=== PATIENT | female | born 1950 | race Caucasian/White ===

== ENCOUNTER 2019-01-13 05:53 | Observation (INO) | payer OTHER ==
[~2019-01-13] VITALS: Ht 165.1 cm; Wt 74.8 kg
[2019-01-13] VITALS (8 sets, daily range): BP systolic 77–120; BP diastolic 45–78
[~2019-01-13 05:53] MED LIST: BIOT1CAP3 PO; CHOL10003 PO; COFF400C PO; CYAN250012 PO; FLUT9.9S NS; L.AC1CAP6 PO; METO25TA2 PO; MONT10TA9 PO; NAPR220T70 PO; SENN1TAB70 PO; SIMV40TA3 PO; TURM538C PO
[2019-01-13] MEDS ORDERED: LIDOCAINE 1%/EPI 1:100,000 20 ML VIAL. ONE ×2 (06:40)
[2019-01-13] MEDS ORDERED: ESTROGENS, CONJ VAGINAL CREAM 30GM TUBE. ONE (06:40)
[2019-01-13] MEDS ORDERED: PROCHLORPERAZINE 10 MG/2 ML VIAL. IV PRN ×2 (07:00→10:15)
[2019-01-13] MEDS ORDERED: LIDOCAINE 1% PF 2 ML VIAL. ID PRN (07:00)
[2019-01-13] MEDS ORDERED: HYDROmorphone 2 MG/ML VIAL IV PRN (07:00)
[2019-01-13] MEDS ORDERED: IV RINGERS,LACTATED 1000ML 1,000 ML IV SCH (07:00)
[2019-01-13] MEDS ORDERED: MORPHINE SULFATE 2 MG/ML VIAL. IV PRN (07:00)
[2019-01-13] MEDS ORDERED: ONDANSETRON PF 4 MG/2 ML VIAL. IV PRN ×2 (07:00→10:15)
[2019-01-13] MEDS ORDERED: fentaNYL PF VIAL 100 MCG/2 ML VIAL IV PRN ×2 (07:00)
[2019-01-13] MEDS ORDERED: INDIGOTINDISULFONATE SODIUM 40 MG/5 ML AMPUL. IV ONE (07:45)
[2019-01-13] MEDS ORDERED: fentaNYL PF VIAL 250 MCG/5 ML VIAL ONE (07:52)
[2019-01-13] MEDS ORDERED: MIDAZOLAM HCL/PF 2 MG/2 ML VIAL. ONE (07:52)
--- NOTE | 2019-01-13 07:59 | NUR ---
at bedside and aware of rash lateral aspect of bilateral breast areas. no orders given by . Dr. Schultz states it is ok for pt to have surgery.
[2019-01-13] MEDS ORDERED: DEXAMETHASONE SOD PHOS 4 MG/ML VIAL ONE (08:50)
[2019-01-13] MEDS ORDERED: LIDOCAINE 2% PF 5 ML VIAL. ONE (08:50)
[2019-01-13] MEDS ORDERED: ONDANSETRON PF 4 MG/2 ML VIAL. ONE (08:50)
[2019-01-13] MEDS ORDERED: PROPOFOL 20 ML IV ONE (08:50)
[2019-01-13 08:51] LABS: BASO % 1 % (0-3); EOS # 0.2 x10^3/uL (0.0-0.7); EOS % 3 % (0-3); HEMATOCRIT 44.5 % (36.0-47.0); HEMOGLOBIN 14.5 g/dL (12.0-15.5); LYMPH # 1.7 x10^3/uL (1.0-4.8); LYMPH % 32 % (24-48); MEAN CORPUSCULAR HEMOGLOBIN 29 pg (25-35); MEAN CORPUSCULAR HGB CONC 33 g/dL (31-37); MEAN CORPUSCULAR VOLUME 88 fL (79-100); MONO # 0.6 x10^3/uL (0.0-1.1); MONO % 11 % (0-9); NEUT # 2.7 x10^3uL (1.8-7.7); NEUT % 53 % (31-73); PLATELET COUNT 197 x10^3/uL (140-400); RED BLOOD COUNT 5.07 x10^6/uL (3.50-5.40); RED CELL DISTRIBUTION WIDTH 13.6 % (11.5-14.5); WHITE BLOOD COUNT 5.1 x10^3/uL (4.0-11.0)
[2019-01-13] MEDS ORDERED: SEVOFLURANE > 120 MINUTES. IH ONE (09:40)
--- NOTE | 2019-01-13 10:01 | PDOC ---
BRIEF OPERATIVE NOTE Date: January 13, 2019 Pre-Op Diagnosis 1. Incomplete Uterovaginal Prolapse 2. UMER Post-Op Diagnosis Same Procedure Performed 1. TVH & BSO 2. SSF 3. Bladder Sling 4. Anterior Colporrhaphy Surgeon Dr. Schultz Anesthesia Type: General Blood Loss 50 ml Specimens Obtained uterus, cervix, dk. fallopian tubes and ovaries Findings incomplete uterovaginal prolapse and UMER Complications none Operative Note see dictation SHIRLEY SCHULTZ Jr, MD January 13, 2019 10:01
[2019-01-13] MEDS ORDERED: 0.9 % SODIUM CHLORIDE 10 ML DISP.SYRIN. IV PRN (10:15)
[2019-01-13] MEDS ORDERED: diphenhydrAMINE HCL 25 MG CAPSULE PO PRN (10:15)
[2019-01-13] MEDS ORDERED: ZOLPIDEM 5 MG TABLET. PO PRN (10:15)
[2019-01-13] MEDS ORDERED: DEXTROSE 50% 25 GM / 50ML DISP.SYRIN. IV PRN (10:15)
[2019-01-13] MEDS ORDERED: diphenhydrAMINE 50 MG/ML VIAL IV PRN (10:15)
[2019-01-13] MEDS ORDERED: SIMETHICONE 80 MG TAB.CHEW PO PRN (10:15)
[2019-01-13] MEDS ORDERED: OPIUM/BELLADONNA 30/16.2MG SUPP.RECT. PR PRN (10:15)
[2019-01-13] MEDS ORDERED: CALCIUM CARBONATE 500 MG TAB.CHEW PO PRN (10:15)
[2019-01-13] MEDS ORDERED: KETOROLAC 30 MG/ML VIAL. IV PRN (10:15)
[2019-01-13] MEDS ORDERED: fentaNYL PF VIAL 100 MCG/2 ML VIAL ONE (10:23)
--- NOTE | 2019-01-13 11:03 | OP ---
DATE OF SURGERY: PREOPERATIVE DIAGNOSES: 1. Incomplete uterovaginal prolapse. 2. Stress urinary incontinence. POSTOPERATIVE DIAGNOSES: 1. Incomplete uterovaginal prolapse. 2. Stress urinary incontinence. PROCEDURE: 1. TVH-BSO. 2. Sacrospinous ligament fixation. 3. Bladder sling. 4. Anterior colporrhaphy. SURGEON: Shirley Carter MD ANESTHESIA: GETA. ESTIMATED BLOOD LOSS: 50 mL. COMPLICATIONS: None. FINDINGS: Incomplete uterovaginal prolapse, stress urinary incontinence. SUMMARY: This is a 68-year-old who was diagnosed with incomplete uterovaginal prolapse and stress urinary incontinence in clinic. She was counseled on risks, benefits and expectations of TVH-BSO, sacrospinous ligament fixation, anterior and posterior repair and bladder sling placement. The patient voiced clear understanding and desired to proceed. DESCRIPTION OF PROCEDURE: The patient was taken to surgery suite and placed in dorsal lithotomy position. She was prepped with Betadine solution for vaginal prep and draped in sterile fashion. After adequate anesthesia, weighted speculum and curved [place] placed vaginally. Dmitriy clamp was placed on the cervix. The cervix was then injected with 1% Xylocaine with epinephrine in a circumferential manner. Bovie cautery was utilized to circumscribe the cervix. The vaginal mucosa was dissected away from the lower uterine segment using a moist Ray-Lizzy. The parametrial tissue was clamped bilaterally with curved Tato clamps, cut and suture ligated with 2-0 Vicryl suture. The posterior cul-de-sac was entered with sharp dissection with curved Coreas scissors. The long weighted speculum was placed. Uterosacral ligaments and cardinal ligaments were clamped bilaterally, cut, and suture ligated. Additional pedicle was taken just adjacent to the uterus, which was clamped with curved Tato clamps, cut, and suture ligated. The uterus was then retroverted. The round ligament and uteroovarian pedicles were clamped bilaterally with curved Tato clamps, cut and suture ligated and a small area peritoneum was adjacent to the uterus was clamped, cut, and tied with free tie. The uterus was then removed. The right infundibulopelvic ligament was isolated, clamped with curved Tato clamp, cut, tied with a suture tie and the entire right fallopian tube and ovary were then removed. Same process took place with the left adnexa. At this time, we transitioned to the vaginal colpopexy, in which the Capio device was utilized to place a suture through the medial aspect of the right sacrospinous ligament and tied to the anterior and posterior vaginal cuff. Two sutures were performed in this manner in which the vaginal cuff was tied loosely. The remainder of the vaginal cuff was reapproximated using 2-0 Vicryl suture in a eoyjht-yz-pggoz manner. Allis clamp was placed 1 cm below the urethral orifice. A second Allis clamp was placed 3 cm below the first Allis clamp and the anterior vaginal wall mucosa. 1% Xylocaine with epinephrine was injected between the 2 Allis clamps as well as in the periurethral space. It was also injected in the insertion points of the groin, which is at the level of the clitoris and where the abductus longus attached to the pubic rami bilaterally. An incision was made for the entry points as well for the trocar. The scalpel was utilized to make a vertical incision between the 2 Allis clamps. The vaginal mucosa was dissected away from the pubovesical fascia using sharp dissection with Metzenbaum scissors, also creating space in the periurethral space all the way to the obturator foramen bilaterally. Blunt dissection was also performed all the way to the obturator foramen bilaterally. The left trocar was then placed and guided with my index finger out through the periurethral space. Same process was placed through the right trocar. Cystoscopy was then performed in which the bladder was intact with no evidence of injury. The ureterovesical junctions were functioning normally bilaterally. The cystoscope was then removed. The bladder sling was adjusted with a size 7 Hegar dilator to a loose fit underneath the urethra. The exposed mesh at the groin region was excised and the skin was reapproximated using Dermabond. We then proceeded with the anterior colporrhaphy in which the pubovesical fascia was reapproximated using 2-0 Vicryl suture in an interrupted fashion. The excess anterior vaginal mucosa was excised using Metzenbaum scissors. The remaining anterior vaginal wall mucosa was reapproximated using 2-0 Vicryl suture in a akldnx-aj-nqehd manner. At this time, there was no need for the posterior colporrhaphy. A Premarin soaked vaginal packing was placed. Reinoso catheter was placed, which elicited clear yellow urine. The patient tolerated the procedure well and was taken to recovery room in stable condition. Sponge and needle count correct x 3. SHIRLEY CARTER MD DR: ROMÁN/carmel JOB#: [id number] / [id number]
[2019-01-13] MEDS: oxyCODONE/APAP 5/325 1 TAB TABLET PO PRN ×2 (13:58→18:35)
[2019-01-13] MEDS: GABAPENTIN 300 MG CAPSULE. PO SCH (14:00)
[2019-01-14] VITALS: BP 110/58
[2019-01-14 05:30] VITALS: BP 108/60
[2019-01-14] MEDS: oxyCODONE/APAP 5/325 1 TAB TABLET PO PRN ×2 (05:40→12:23)
[2019-01-14 05:49] LABS: RED BLOOD COUNT 3.47 x10^6/uL (3.50-5.40); WHITE BLOOD COUNT 9.2 x10^3/uL (4.0-11.0)
[2019-01-14 05:50] LABS: BASO % 0 % (0-3); EOS % 1 % (0-3); HEMATOCRIT 30.9 % (36.0-47.0); HEMOGLOBIN 10.2 g/dL (12.0-15.5); LYMPH # 1.3 x10^3/uL (1.0-4.8); LYMPH % 14 % (24-48); MEAN CORPUSCULAR HEMOGLOBIN 30 pg (25-35); MEAN CORPUSCULAR HGB CONC 33 g/dL (31-37); MEAN CORPUSCULAR VOLUME 89 fL (79-100); MONO # 0.9 x10^3/uL (0.0-1.1); MONO % 10 % (0-9); NEUT # 6.9 x10^3uL (1.8-7.7); NEUT % 75 % (31-73); PLATELET COUNT 169 x10^3/uL (140-400); RED CELL DISTRIBUTION WIDTH 13.6 % (11.5-14.5)
[2019-01-14] MEDS: GABAPENTIN 300 MG CAPSULE. PO SCH (08:36)
[2019-01-14] MEDS ORDERED: DICLOFENAC SODIUM 1% TOPICAL GEL 100GM TUBE. TP SCH (09:00)
--- NOTE | 2019-01-14 12:22 | PDOC ---
SURGICAL PROGRESS NOTE Subjective Pt. feeling well. Pain controlled. Pt. tolerated regular diet and ambulating in room. Vital Signs Vital Signs Date Time Temp Pulse Resp B/P (MAP) Pulse Ox O2 Delivery O2 Flow Rate FiO2 01/14/19 05:40 18 Room Air 97.0 01/14/19 05:30 98.0 67 108/60 (76) 99 98.0 I&O Intake and Output 01/14/19 07:00 Intake Total 2810 ml Output Total 1925 ml Balance 885 ml Intake Oral 1160 ml IV Total 1650 ml Output Urine Total 1875 ml Estimated Blood Loss 50 ml PATIENT HAS A ROBLES: Yes General: Alert, Oriented X3, Cooperative HEENT: Atraumatic Lungs: Clear to auscultation Heart: Regular rate Abdomen: Normal bowel sounds, Soft, No tenderness Psych/Mental Status: Mental status NL Labs Laboratory Tests Test 01/13/19 06:09 01/14/19 05:30 White Blood Count 5.1 x10^3/uL (4.0-11.0) 9.2 x10^3/uL (4.0-11.0) Red Blood Count 5.07 x10^6/uL (3.50-5.40) 3.47 x10^6/uL (3.50-5.40) Hemoglobin 14.5 g/dL (12.0-15.5) 10.2 g/dL (12.0-15.5) Hematocrit 44.5 % (36.0-47.0) 30.9 % (36.0-47.0) Mean Corpuscular Volume 88 fL (79-100) 89 fL (79-100) Mean Corpuscular Hemoglobin 29 pg (25-35) 30 pg (25-35) Mean Corpuscular Hemoglobin Concent 33 g/dL (31-37) 33 g/dL (31-37) Red Cell Distribution Width 13.6 % (11.5-14.5) 13.6 % (11.5-14.5) Platelet Count 197 x10^3/uL (140-400) 169 x10^3/uL (140-400) Neutrophils (%) (Auto) 53 % (31-73) 75 % (31-73) Lymphocytes (%) (Auto) 32 % (24-48) 14 % (24-48) Monocytes (%) (Auto) 11 % (0-9) 10 % (0-9) Eosinophils (%) (Auto) 3 % (0-3) 1 % (0-3) Basophils (%) (Auto) 1 % (0-3) 0 % (0-3) Neutrophils # (Auto) 2.7 x10^3uL (1.8-7.7) 6.9 x10^3uL (1.8-7.7) Lymphocytes # (Auto) 1.7 x10^3/uL (1.0-4.8) 1.3 x10^3/uL (1.0-4.8) Monocytes # (Auto) 0.6 x10^3/uL (0.0-1.1) 0.9 x10^3/uL (0.0-1.1) Eosinophils # (Auto) 0.2 x10^3/uL (0.0-0.7) 0.0 x10^3/uL (0.0-0.7) Basophils # (Auto) 0.0 x10^3/uL (0.0-0.2) 0.0 x10^3/uL (0.0-0.2) Laboratory Tests Test 01/14/19 05:30 White Blood Count 9.2 x10^3/uL (4.0-11.0) Red Blood Count 3.47 x10^6/uL (3.50-5.40) Hemoglobin 10.2 g/dL (12.0-15.5) Hematocrit 30.9 % (36.0-47.0) Mean Corpuscular Volume 89 fL (79-100) Mean Corpuscular Hemoglobin 30 pg (25-35) Mean Corpuscular Hemoglobin Concent 33 g/dL (31-37) Red Cell Distribution Width 13.6 % (11.5-14.5) Platelet Count 169 x10^3/uL (140-400) Neutrophils (%) (Auto) 75 % (31-73) Lymphocytes (%) (Auto) 14 % (24-48) Monocytes (%) (Auto) 10 % (0-9) Eosinophils (%) (Auto) 1 % (0-3) Basophils (%) (Auto) 0 % (0-3) Neutrophils # (Auto) 6.9 x10^3uL (1.8-7.7) Lymphocytes # (Auto) 1.3 x10^3/uL (1.0-4.8) Monocytes # (Auto) 0.9 x10^3/uL (0.0-1.1) Eosinophils # (Auto) 0.0 x10^3/uL (0.0-0.7) Basophils # (Auto) 0.0 x10^3/uL (0.0-0.2) Assessment/Plan POD#1 s/p TVH, BSO, SSF, Bladder sling and anterior repair P: D/c home. F/u in 2 weeks. SHIRLEY CARTER Jr, MD January 14, 2019 12:22
[2019-01-14] MEDS ORDERED: OXYC1TAB15 PO (12:24)
[2019-01-14] MEDS ORDERED: GABA300C18 PO (12:25)
--- NOTE | 2019-01-14 12:25 | DISCH ---
DISCHARGE INSTRUCTIONS Condition on Discharge Condition on Discharge: Stable Activity After Discharge Activity Instructions for Disc: Activity as tolerated Lifting Instructions after Dis: No heavy lifting Driving Instructions after Dis: Do not drive today Diet after Discharge Diet after Discharge: Regular Contacting the DREddie after DC Call your doctor for: Concerns you may have Follow-Up Follow up with: Dr. Schultz in 2 weeks. SHIRLEY SCHULTZ Jr, MD January 14, 2019 12:25
--- NOTE | 2019-01-14 13:05 | NUR ---
bladder challenge done on pt. pt voided 200cc clear urine. bladder scanned pt states 20 cc left in bladder. pt dressding for home
--- NOTE | 2019-01-14 13:25 | NUR ---
home instructions gone over with pt and signed. scripts of neurontin given with percocet for home. no questions asked on home care
--- NOTE | 2019-01-18 13:08 | PATHOLOGY ---
[facility] Accession Number: [id number] . 01 Material submitted: . uterus - UTERUS, OVARIES AND TUBES . 01 Clinical history: . Prolapse. . 02 Diagnosis: Uterus, bilateral ovaries and fallopian tubes, hysterectomy and bilateral salpingo-oophorectomy: - Cervix with mild chronic inflammation, squamous metaplasia, and nabothian cysts. - Atrophic endometrium. - Myometrium with leiomyomata, multiple, up to 3.0 cm. - Serosal surface with no pathologic diagnosis. - Right and left ovaries and fallopian tubes with no pathologic diagnosis. (SKM/sada; 01/14/2019) LBQ/01/14/2019 . 02 Electronically signed: . [place] MD, Pathologist NPI- [id number] . 01 Gross description: . Received in formalin labeled "Marita Eisenberg, uterus, ovaries and tubes" is a hysterectomy specimen with detached fallopian tubes and ovaries. The uterus weighs 67 g and measures 9.6 cm from fundus to cervix, 5.8 cm from cornu to cornu, and 3.1 cm from anterior to posterior. The ectocervix is pink-ferguson and glistening and displays a pinpoint cervical os. The uterine serosa is pink-red and slightly ragged. The uterus is opened to reveal multiple ferguson-white whorled leiomyomata ranging from 0.6-3.0 cm in greatest dimension. The endometrial cavity measures 4.0 x 1.9 cm and the endocervical canal measures 2.2 x 0.5 cm. The average endometrial thickness is 0.1 cm and the average myometrial thickness is 1.4 cm. Also present within the container are two detached salpingo-oophorectomy pieces. The first ovary measures 2.1 x 1.3 x 0.8 cm and weighs 2 g. The attached fallopian tube measures 3.8 cm in length and 0.6 cm in diameter. The second ovary weighs 2 g and measures 2.6 x 1.3 x 0.8 cm and the attached fallopian tube measures 3.6 cm in length and 0.6 cm in diameter. Both ovaries are ferguson-white and smooth and both fallopian tubes are pink-ferguson and fibriated. Upon sectioning, no gross abnormalities are identified. Hosiery Looper sections are submitted as follows: A1 12:00 cervix A2 6:00 cervix A3 anterior endomyometrium A4 posterior endomyometrium A5-A6 patient admitting representative leiomyomata A7 patient admitting representative first fallopian tube A8 patient admitting representative first ovary A9 patient admitting representative second fallopian tube A10 patient admitting representative second ovary ([facility] [place]; 01/13/2019) SYC/SYC . 02 Pathologist provided ICD-10: N72, N85.8, D25.9 . 02 CPT . 113533 Specimen Comment: A courtesy copy of this report has been sent to Specimen Comment: [phone], . Specimen Comment: Report sent to / DR JI Performed at: 01 [facility] [address], [place], [place] [id number] MD Colton Lakhani MD Phone: [phone] Performed at: 02 [facility] [address] [place], [place] [id number] MD Tod King MD Phone: [phone]
== END 2019-01-14 13:25 | disposition home or self-care (01) ==
LOC: SURG 05:53 → 3 NORTH 10:48
PROVIDERS: ADMIT Obstetrics & Gynecology; ATTEND Obstetrics & Gynecology
DX: N81.2 Incomplete uterovaginal prolapse (principal); N39.3 Stress incontinence (female) (male); E78.5 Hyperlipidemia, unspecified; I10 Essential (primary) hypertension; Z98.890 Other specified postprocedural states
CPT/HCPCS: 36415; 51992; 58552; 85025; 86850; 86900; 86901; 96374; 96375; A7015; G0378; G0379; J0696; J1100; J1885; J2001; J2250; J2405; J2704; J3010; J3490; J7030; J7120; 88305; C1771